=== PATIENT | female | born 1975 | race Caucasian/White ===

== ENCOUNTER 2022-03-05 22:17 | Emergency (ER) | payer OTHER, SELFPAY ==
--- NOTE | ~2022-03-05 | XR_ITS ---
EXAMINATION: XR ankle RT min 3V DATE: 03/06/2022 00:05 INDICATION: Right ankle pain and swelling. TECHNIQUE: 4 views of right ankle were obtained. COMPARISON: None. FINDINGS: Bone alignment is normal. No fracture. There is mild osteoarthritis of talonavicular joint. Ankle soft tissue swelling is noted. IMPRESSION: 1. Mild osteoarthritis of talonavicular joint. Reviewed, dictated and finalized at location A.
[2022-03-05 22:24] VITALS: BP 152/89; PULSE 80; RESP 16; TEMP 37; O2SAT 100
--- NOTE | 2022-03-05 22:57 | PC.NURSE ---
Patient report to [facility]ICK[facility]. All questions answered and care of patient transferred.
[2022-03-05 23:08] VITALS: PULSE 73; O2SAT 99
--- NOTE | 2022-03-05 23:16 | ED.GENADULT ---
HPI - General Adult General Chief complaint: Extremity Injury, Lower Stated complaint: right leg/ankle/knee pain Time Seen by Provider: 03/05/22 23:01 Source: patient Mode of arrival: ambulatory Limitations: no limitations History of Present Illness HPI narrative: Patient is a 46-year-old female who presents the ED with report of pain and swelling to her RLE. Patient reports having pain in her R ankle for the past 10 days. She thinks she has been walking differently due to the pain causing her to overcompensate and is now having pain in her right knee and right posterior thigh. She also reports having localized swelling around her right ankle. Over the last couple days she has noticed redness/warmth to her right ankle and an area of red streaking to her right anterior thigh. She has an appointment with her PCP tomorrow. Has been taking advil at home. Denies any recent fall/trauma/injury, fevers, Hx of DVT, estrogen therapy, recent long distance travel. Related Data Allergies Allergy/AdvReac Type Severity Reaction Status Date / Time No Known Allergies Allergy Verified 03/05/22 22:27 Review of Systems Review of Systems: CONSTITUTIONAL: Denies fever, chills, or sweats. CARDIOVASCULAR: Denies chest pain. RESPIRATORY: Denies dyspnea. GASTROINTESTINAL: Denies abdominal pain, nausea, vomiting. SKIN: Reports swelling to right ankle. MUSCULOSKELETAL: Reports pain right ankle, right knee, right posterior thigh. NEUROLOGIC: Denies tingling, numbness, or weakness. All systems reviewed & are unremarkable except as noted in HPI and below PMFSH Past Medical History Medical History (Updated 03/06/22 @ 00:48 by Emiliana Ramírez PA-C) No pertinent past medical history Surgical History Surgical History (Updated 03/06/22 @ 00:04 by Emiliana Ramírez PA-C) No pertinent past surgical history Social History Social History (Updated 03/06/22 @ 00:05 by Emiliana Ramírez PA-C) Smoking status: Never smoker Exam Narrative: GENERAL: Well appearing, well-nourished, non-toxic, in no acute distress. HEAD: Normocephalic, atraumatic. NECK: Supple. No adenopathy, no masses. RESPIRATORY: Airway patent, respirations nonlabored. Clear to auscultation bilaterally, no rales, rhonchi, wheezing. CARDIOVASCULAR: Regular rate and rhythm without murmurs, rubs, or gallops. Pedal pulses 2+ and equal bilaterally. MUSCULOSKELETAL: Moves all extremities. Strength/ROM intact, somewhat limited range of motion with flexion of right knee due to discomfort. Mild diffuse swelling and tenderness to palpation to right ankle, worse laterally over the lateral malleoli, extending anteriorly. Small area of erythema over medial and lateral malleoli. R ankle feels warm to the touch compared to left ankle. No significant swelling of right calf, right knee, right thigh. No significant tenderness to palpation of calf. Small area of point tenderness to right posterior lateral thigh below the level of the gluteal crease. Thin linear line of erythema, approximately 14 cm, superior medial knee extending up medial right thigh. No significant tenderness along this line. SKIN: Warm, dry, normal color. No rashes. NEURO: A&O X3. Speech clear. Cranial nerves II-XII grossly intact. Steady gait. No ataxic movements. PSYCHIATRIC: Appropriate mood and affect. Normal interaction. Course Vital Signs Vital signs: Vital Signs Temperature 98.6 F 03/05/22 22:24 Pulse Rate 80 03/05/22 22:24 Respiratory Rate 16 03/05/22 22:24 Blood Pressure 152/89 H 03/05/22 22:24 Pulse Oximetry 100 03/05/22 22:24 Temperature 98.6 F 03/05/22 22:24 Pulse Rate 71 03/06/22 01:05 Respiratory Rate 14 03/06/22 01:05 Blood Pressure 102/72 03/06/22 01:05 Pulse Oximetry 100 03/06/22 01:05 Medical Decision Making [facility] Narrative Medical decision making narrative: Patient presented to ED with 10 day history of R ankle pain, 2-3 day history of redness to R ankl
[2022-03-05 23:30] VITALS: O2SAT 100
[2022-03-05 23:44] LABS: Basophils Absolute Auto 0.1 K/mm3 (0.0-0.1); Basophils Percent Auto 0.5 % (0.2-1.2); Eosinophils Absolute Auto 0.4 K/mm3 (0-0.3); Eosinophils Percent Auto 3.6 % (0-4.4); Hematocrit 37.7 % (37.0-47.0); Hemoglobin 12.7 g/dL (12.0-15.0); Immature Granulocyte Absolute 0.03 K/mm3 (0.00-0.031); Immature Granulocyte Percent A 0.3 % (0-0.5); Lymphocytes Absolute Auto 1.69 K/mm3 (0.9-3.2); Lymphocytes Percent Auto 17.6 % (18.3-44.2); Mean Corpuscular HGB Conc 33.7 g/dl (32-36); Mean Corpuscular Hemoglobin 30.7 pg (26-34); Mean Corpuscular Volume 91.1 fl (80-100); Mean Platelet Volume 8.7 fl (7.4-10.4); Monocytes Absolute Auto 0.7 K/mm3 (0.1-0.6); Monocytes Percent Auto 7.2 % (2.6-8.5); Neutrophils Absolute Auto 6.8 K/mm3 (1.3-6.7); Neutrophils Percent Auto 70.8 % (45.5-73.1); Platelet Count Result 279 k/mm3 (150-375); Red Blood Count 4.14 M/mm3 (4.2-5.4); Red Cell Distribution Width 12.7 % (11.5-14.5); White Blood Count 9.6 K/mm3 (4.5-10.0)
[2022-03-06 00:03] LABS: Alanine Aminotransferase 22 U/L (6-35); Albumin Level 4.4 g/dL (3.5-5.1); Alkaline Phosphatase 54 U/L (38-126); Anion Gap 11 mmol/L (8-16); Aspartate Amino Transferase 31 U/L (14-36); Bilirubin,Total 0.4 mg/dL (0.2-1.3); Blood Urea Nitrogen 14 mg/dL (7-17); Calcium 9.4 mg/dL (8.4-10.2); Carbon Dioxide 24 mmol/L (22-30); Chloride 102 mmol/L (98-107); Estimated CRCL calculation 86 ml/min; Estimated Glomerular Filt Rate > 60; Glucose 100 mg/dL (65-110); Potassium 3.9 mmol/L (3.4-5.0); Sodium 137 mmol/L (137-145)
[2022-03-06 00:22] LABS: D Dimer 0.29 ug/mL (<0.48)
[2022-03-06 00:23] VITALS: BP 126/89; PULSE 65; O2SAT 100
[2022-03-06 01:05] VITALS: BP 102/72; PULSE 71; RESP 14; O2SAT 100
[2022-03-06] MEDS: CEPHALEXIN 500 MG CAPSULE PO (01:10)
[2022-03-06] MEDS: NAPROXEN 250 MG TABLET 500 MG PO (01:10)
== END 2022-03-06 01:05 | disposition home or self-care (01) ==
PROVIDERS: Physician Assistant; Emergency Provider Emergency Medicine; PCP Internal Medicine
DX: L03.115 Cellulitis of right lower limb (principal); M19.071 Primary osteoarthritis, right ankle and foot
CPT/HCPCS: 36415; 73610; 80053; 85025; 85380; 99283; A9270